=== PATIENT | female | born 1980 | race Caucasian/White ===

== ENCOUNTER 2021-03-04 10:30 | Emergency (ER) | payer OTHER, SELFPAY ==
--- NOTE | ~2021-03-04 | XR_ITS ---
XR elbow RT min 3V 03/04/2021 11:13 INDICATION: Right elbow pain PROCEDURE: 4 views right elbow COMPARISON: No prior studies for comparison. FINDINGS: Fracture, dislocation or subluxation is not identified. No significant joint effusion. The soft tissues appear within normal limits. No foreign bodies are identified. IMPRESSION: 1: NO ACUTE BONE OR JOINT ABNORMALITY IDENTIFIED. Reviewed, dictated and finalized at location A.
[2021-03-04 10:46] VITALS: BP 135/83; PULSE 109; RESP 18; TEMP 36.9; O2SAT 100
--- NOTE | 2021-03-04 11:01 | ED.UPPEXIN ---
HPI - Extremity Injury (Upper) General Chief Complaint: Extremity Injury, Upper Stated Complaint: right elbow Source: patient Mode of arrival: ambulatory Limitations: no limitations History of Present Illness HPI narrative: 41-year-old female presents to [facility] with complaints of pain and mild swelling to her right elbow for the past month. Patient denies injury but reports that she does take heavy trash out at work daily. Patient has been taking [id number] Tylenol with minimal relief. Patient denies erythema, redness or open wounds. MD complaint: injury to: right and elbow Onset (ago): month(s) (1) Other injuries: none Associated symptoms: denies other symptoms Related Data Home Medications Medication Instructions Recorded Confirmed quetiapine [Seroquel] 150 mg PO HS 03/04/21 03/04/21 Allergies Allergy/AdvReac Type Severity Reaction Status Date / Time No Known Allergies Allergy Verified 03/04/21 10:57 Review of Systems Constitutional: Constitutional: Denies chills, Denies fever(s) and Denies weakness Cardiovascular: Cardiovascular: Denies chest pain, Denies rapid heart rate and Denies radiating jaw, neck or arm pain Respiratory: Respiratory: Denies cough and Denies dyspnea Gastrointestinal: Gastrointestinal: Denies abdominal pain, Denies diarrhea, Denies nausea and Denies vomiting Musculoskeletal: Musculoskeletal: Reports arthralgias and Reports joint swelling Integumentary/Breasts: Skin/Breast: Denies rash PMFSH Surgical History Surgical History (Updated 03/04/21 @ 11:02 by Chloé Mccarthy APRN) History of placement of ear tubes Social History Social History (Updated 03/04/21 @ 11:02 by Chloé Mccarthy APRN) Smoking status: Current every day smoker Comments At time of signature, I agree with nursing past medical, surgical, social and family history. There is no relevant family history pertinent to the presenting complaint. Exam Const: General: healthy appearing and no acute distress Orientation/consciousness: patient oriented x3 Neck: Neck: normal visual inspection Resp: Effort & Inspection: normal respiratory effort and not tachypneic Auscultation: clear to auscultation bilaterally Cardio: Rate: regular rate, not bradycardic and not tachycardic Rhythm: regular rhythm Skin: General skin exam: normal color Rashes: no rashes Wounds: no wounds Neuro: General: patient oriented x3, moves all extremities and no meningeal signs Extrem: Other: Minimal swelling noted to right elbow. There is pain noted to right elbow upon palpation and range of motion. Pulses are within normal limits. Psych: Mental Status: mental status grossly normal Affect: normal affect Attitude: cooperative Thought content: Yes Normal thought content present Course Vital Signs Vital signs: Vital Signs Temperature 36.9 C 03/04/21 10:46 Pulse Rate 109 H 03/04/21 10:46 Respiratory Rate 18 03/04/21 10:46 Blood Pressure 135/83 03/04/21 10:46 Pulse Oximetry 100 03/04/21 10:46 Temperature 36.9 C 03/04/21 10:46 Pulse Rate 109 H 03/04/21 10:46 Respiratory Rate 18 03/04/21 10:46 Blood Pressure 135/83 03/04/21 10:46 Pulse Oximetry 100 03/04/21 10:46 MDM - Extremity Injury (Upper) MDM Narrative Medical decision making narrative: Patient agrees to take medications as prescribed. Rice therapy discussed with patient. Patient agrees to purchase a tennis elbow strap and wear as directed. Patient agrees to follow-up with orthopedics if symptoms not improved. Patient agrees to proceed in the emergency room if symptoms worsen Differential Diagnosis Differential diagnosis: Likely other (Fracture, sprain, tendinitis) Imaging Data Radiologist's impression: normal right elbow xaray per radiologist Critical Care Time Critical Care Time Critical Care Time: No Discharge Plan Discharge Clinical Impression: Epicondylitis, lateral (tennis elbow) Patient Disposition: Home
== END 2021-03-04 11:33 | disposition home or self-care (01) ==
PROVIDERS: Emergency Provider Nurse Practitioner Family; PCP Family Medicine
DX: M77.11 Lateral epicondylitis, right elbow (principal)
CPT/HCPCS: 73080; 99213; G0463

== ENCOUNTER 2022-06-20 15:46 | Emergency (ER) | payer OTHER, SELFPAY ==
[2022-06-20 15:58] VITALS: BP 119/77; PULSE 99; RESP 20; TEMP 36.5; O2SAT 96
--- NOTE | 2022-06-20 16:22 | ED.EAR ---
HPI - Ear Problem General Chief complaint: Ear Stated complaint: ear pain Time Seen by Provider: 06/20/22 16:22 History of Present Illness HPI Narrative: Patient presents with bilateral ear pain for a couple weeks. No drainage from her ear no fever no cough does take Claritin on a daily basis for allergies. Related Data Home Medications Medication Instructions Recorded Confirmed Zoloft 150 mg DAILY 06/20/22 06/20/22 Allergies Allergy/AdvReac Type Severity Reaction Status Date / Time No Known Allergies Allergy Verified 06/20/22 16:19 Review of Systems Review of Systems: CONSTITUTIONAL: Denies fever, chills, or sweats. EYES: Denies visual changes, redness, or discharge. ENT: Denies rhinorrhea, congestion, sore throat, or otalgia. CARDIOVASCULAR: Denies chest pain, palpitations, or edema. RESPIRATORY: Denies cough or dyspnea. GASTROINTESTINAL: Denies abdominal pain, nausea, vomiting, or diarrhea. GENITOURINARY: Denies dysuria or hematuria. SKIN: Denies rash or itching. MUSCULOSKELETAL: Denies back pain, joint pain, or myalgia. NEUROLOGIC: Denies headache, numbness, or weakness. PSYCHIATRIC: Denies anxiety or depression. [facility] Surgical History Surgical History (Updated 03/04/21 @ 11:02 by Chloé Mccarthy APRN) History of placement of ear tubes Social History Social History (Updated 03/04/21 @ 11:02 by Chloé Mccarthy APRN) Smoking status: Current every day smoker Comments At time of signature, agree with nursing past medical, surgical, social and family history. There is no relevant family history pertinent to the presenting complaint Exam Narrative: The patient is a well-developed, well-nourished in no acute distress. SKIN: Skin is warm and dry without erythema, swelling or exudate. There is good turgor. No tenting. HEAD: Atraumatic. Normocephalic. No temporal or scalp tenderness. EYES: Moist and bright. Sclera and conjunctivae normal. No discharge. PERRLA. Extraocular motions intact. Gross visual acuity intact. EARS: Pinna is normal shape and contour. Clear external auditory canals. TM pearly van with good cone of light, no erythema or suppuration. Bilateral cerumen noted no gross hearing deficit. NOSE: pink, moist mucosa with good air movement. Clear rhinorrhea without nasal flaring. Septum midline. Mouth: moist mucous membranes. THROAT; mild erythema noted to posterior oropharynx with moderate postnasal drainage. Without exudate or ulceration.. Uvula midline. Normal movement of soft palate. NECK: Supple and nontender with full range of motion without discomfort. No meningeal signs. LUNGS: Equal and bilateral breath sounds without wheezes, rales or rhonchi. CHEST: The chest wall is without retractions or use of accessory muscles. HEART: Has a regular rate and rhythm without murmur, gallops, click or rub. ABDOMEN: Soft, nontender with positive active bowel sounds. No rebound tenderness. EXTREMITIES: Without cyanosis, clubbing or edema. Equal 2+ distal pulses and 2 second capillary refill noted. NEUROLOGIC: alert, active, . The patient moves all extremities with normal muscle strength. Normal muscle tone is noted. Normal coordination is noted. NO focal neurological findings noted. Course Course Level of Care: Express Care Visit Vital Signs Vital signs: Vital Signs Temperature 36.5 C 06/20/22 15:58 Pulse Rate 99 06/20/22 15:58 Respiratory Rate 20 06/20/22 15:58 Blood Pressure 119/77 06/20/22 15:58 Pulse Oximetry 96 06/20/22 15:58 Oxygen Delivery Room Air 06/20/22 15:58 Temperature 36.5 C 06/20/22 15:58 Pulse Rate 99 06/20/22 15:58 Respiratory Rate 20 06/20/22 15:58 Blood Pressure 119/77 06/20/22 15:58 Pulse Oximetry 96 06/20/22 15:58 Oxygen Delivery Room Air 06/20/22 15:58 Medical Decision Making Differential Diagnosis Differential Diagnosis: Eustachian tube dysfunction, otitis media, otitis externa Vital Signs Vital Signs: Vital Signs Tem
== END 2022-06-20 16:51 | disposition home or self-care (01) ==
PROVIDERS: Emergency Provider Nurse Practitioner Family; PCP Family Medicine
DX: H69.93 Unspecified Eustachian tube disorder, bilateral (principal); F17.200 Nicotine dependence, unspecified, uncomplicated
CPT/HCPCS: 99211; G0463